=== PATIENT | female | born 1985 | race African-American/Black ===

== ENCOUNTER 2024-01-04 22:37 | Observation (INO) | payer BC ==
[2024-01-04] MEDS ORDERED: NIFEdipine 10 MG Cap ONE ×2 (23:10→23:43)
[2024-01-04] MEDS: NIFEdipine 10 MG Cap PO ONE ×2 (23:15→23:46)
[2024-01-05] MEDS: Acetaminophen 500 MG Tab PO ONE ×2 (02:41→08:15)
[2024-01-05] MEDS: Calcium Carbonate 500 MG Tab.Chew PO ONE (02:43)
[2024-01-05 07:53] LABS: HEMATOCRIT 35.7 % (37.0-47.0); HEMOGLOBIN 12.1 g/dL (12.0-16.0); MEAN CORPUSCULAR HEMOGLOBIN 27.8 pg (28.0-32.0); MEAN CORPUSCULAR HGB CONC 33.9 g/dL (32.0-36.0); MEAN CORPUSCULAR VOLUME 81.9 fL (83.0-99.0); MEAN PLATELET VOLUME 11.2 fL (9.4-12.3); PLATELET COUNT,PLT 175 K/uL (150-400); RED BLOOD CELL COUNT 4.36 M/uL (4.10-5.30); WHITE BLOOD CELL COUNT,WBC 6.28 K/uL (3.9-11.3)
[2024-01-05 08:20] LABS: A/G RATIO 0.6 (0.9-1.6); ALBUMIN 2.6 g/dL (3.4-5.0); BILIRUBIN TOTAL 0.4 mg/dL (0.2-1.0); CALCIUM 8.6 mg/dL (8.5-10.1); CARBON DIOXIDE,CO2 25.6 mmol/L (21.0-32.0); CREATININE 0.7 mg/dL (0.6-1.0); EST CRCL DRUG DOSING (CG) 112.08 mL/min; POTASSIUM,K 3.9 mmol/L (3.5-5.1); PROTEIN TOTAL,TP 6.9 g/dL (6.4-8.2); URIC ACID 4.7 mg/dL (2.6-7.2)
[2024-01-05] MEDS ORDERED: Sodium Chloride 0.9% 10 ML Syringe FLUSH PRN (08:39)
[2024-01-05] MEDS ORDERED: Sodium Chloride 0.9% 2.5 ML Syringe FLUSH PRN (08:39)
[2024-01-05] MEDS ORDERED: Calcium Gluconate 10% 1 GM/10 ML SDV IV PRN (08:39)
[2024-01-05] MEDS ORDERED: Sodium Chloride 0.9% 20 ML SDV IV PRN (08:39)
[2024-01-05] MEDS ORDERED: Magnesium Sulfate/Water 2 GM in Premix Bag 1 BAG IV ONE (09:00)
[2024-01-05] MEDS ORDERED: Nitrofurantoin Monohydrate/Macrocrystalline 100 MG Cap PO SCH (09:00)
[2024-01-05] MEDS: Betamethasone Acetate/Betamethasone Sod Phosphate 6 MG/1 ML MDV IM SCH (09:32)
[2024-01-05] MEDS: Acetaminophen 1,000 MG in Premix Bag 1 BAG IV ONE (09:39)
[2024-01-05] MEDS: Magnesium Sulfate/Water 2 GM in Premix Bag 1 BAG IV ONE (09:42)
[2024-01-05] MEDS: Magnesium Sulfate/Water 4 GM in Premix Bag 1 BAG IV ONE (09:59)
[2024-01-05] MEDS ORDERED: Lactated Ringers 1,000 ML IV SCH (10:15)
[2024-01-05] MEDS: Magnesium Sulfate/Water 20 GM/500 ML BAG IV SCH (10:26)
[2024-01-05 10:32] LABS: APPEARANCE,URINE CLOUDY; BILIRUBIN,URINE NEGATIVE (NEGATIVE); COLOR,URINE YELLOW; GLUCOSE,URINE NEGATIVE (NEGATIVE); KETONES,URINE NEGATIVE (NEGATIVE); LEUKOCYTE ESTERASE,URINE TRACE (NEGATIVE); NITRITE,URINE NEGATIVE (NEGATIVE); OCCULT BLOOD,URINE SMALL (NEGATIVE); PROTEIN,URINE TRACE mg/dL (NEGATIVE); UROBILINOGEN,URINE 0.2 EU/dL (<2.0)
[2024-01-05 10:41] LABS: BACTERIA,URINE 3+ (NEGATIVE); EPITHELIAL CELLS,URINE FEW (NONE-FEW); MUCUS,URINE LIGHT (NONE-MOD); RBC,URINE NONE SEEN (0-2/HPF)
[2024-01-05] MEDS: NIFEdipine 30 MG Tab.ER PO SCH (12:05)
[2024-01-05] MEDS: Labetalol 100 MG/20 ML MDV IVPUSH ONE (12:17)
[2024-01-05] MEDS ORDERED: Labetalol 100 MG/20 ML MDV IVPUSH ONE (12:25)
[2024-01-06 15:07] LABS: URINE PROTEIN 44 mg/dL (1-14)
== END 2024-01-05 13:45 | disposition home or self-care (01) ==
LOC: MW.OBCHECK 22:37 → MW.OB 22:37 → MW.OBCHECK 01-05 00:36
PROVIDERS: ADMIT Obstetrics & Gynecology; ATTEND Obstetrics & Gynecology
DX: O13.2 Gestational [pregnancy-induced] hypertension without significant proteinuria, second trimester (principal); O09.522 Supervision of elderly multigravida, second trimester; O34.32 Maternal care for cervical incompetence, second trimester; O44.42 Low lying placenta NOS or without hemorrhage, second trimester; O99.212 Obesity complicating pregnancy, second trimester; O34.219 Maternal care for unspecified type scar from previous cesarean delivery; O30.042 Twin pregnancy, dichorionic/diamniotic, second trimester; R74.8 Abnormal levels of other serum enzymes; Z3A.22 22 weeks gestation of pregnancy
CPT/HCPCS: 36415; 76810; 76810-26; 80053; 81001; 84550; 85027; 86850; 86900; 86901; 96365; 96366; 96367; 96372; 96375; 96376; A9270-GY; G0378; J0131; J0702; J1921; J3475

== ENCOUNTER 2024-07-24 06:58 | Day surgery (SDC) | payer BC ==
[~2024-07-24 06:58] MED LIST: Scopalamine 1mg/3day Transdermal Patch ONE
[2024-07-24] MEDS ORDERED: Sugammadex Sodium 200 MG/2 ML VIAL IV ONE (06:59)
[2024-07-24] MEDS ORDERED: Ferric Subsulfate Topical Soln 8 GM (8 ML) Bottle ONE (07:14)
[2024-07-24] MEDS ORDERED: Lidocaine 1% with EPINEPHrine 1:100,000 10 ML MDV ONE (07:14)
[2024-07-24] MEDS ORDERED: Iodine/Potassium Iodide 5% Solution 14 ML Bottle ONE (07:15)
[2024-07-24] MEDS: Scopalamine 1mg/3day Transdermal Patch TOP ONE (07:20)
[2024-07-24 07:26] LABS: HEMATOCRIT 36.2 % (37.0-47.0); HEMOGLOBIN 11.7 g/dL (12.0-16.0); MEAN CORPUSCULAR HEMOGLOBIN 26.4 pg (28.0-32.0); MEAN CORPUSCULAR HGB CONC 32.3 g/dL (32.0-36.0); MEAN CORPUSCULAR VOLUME 81.7 fL (83.0-99.0); PLATELET COUNT,PLT 271 K/uL (150-400); RED BLOOD CELL COUNT 4.43 M/uL (4.10-5.30); WHITE BLOOD CELL COUNT,WBC 3.85 K/uL (3.9-11.3)
[2024-07-24] MEDS: Lactated Ringers 1,000 ML IV SCH (07:30)
[2024-07-24] MEDS ORDERED: HYDROmorphone 1 MG/ML Syringe IVPUSH PRN (07:38)
[2024-07-24] MEDS ORDERED: Ondansetron 4 MG/2 ML SDV IVPUSH PRN (07:38)
[2024-07-24] MEDS ORDERED: Albuterol 0.083% 2.5 MG/3 ML Neb Soln NEB PRN (07:38)
[2024-07-24] MEDS ORDERED: Morphine 2 MG/ML SYRINGE IVPUSH PRN (07:38)
[2024-07-24] MEDS ORDERED: Phenylephrine HCl In 0.9% NaCl 1 MG/10 ML Syringe IVPUSH PRN (07:38)
[2024-07-24] MEDS ORDERED: Metoclopramide 10 MG/2 ML SDV IVPUSH PRN (07:38)
[2024-07-24] MEDS ORDERED: Naloxone 0.4 MG/ML SDV IVPUSH PRN (07:38)
[2024-07-24] MEDS ORDERED: fentaNYL 50 MCG/ML SDV IVPUSH PRN (07:38)
[2024-07-24] MEDS ORDERED: Propofol 200 MG/20 ML SDV ONE (08:18)
[2024-07-24] MEDS ORDERED: Rocuronium Bromide 50 MG/5 ML Syringe ONE (08:21)
[2024-07-24] MEDS ORDERED: fentaNYL 100 MCG/2 ML SDV ONE (08:21)
[2024-07-24] MEDS ORDERED: Ondansetron 4 MG/2 ML SDV ONE (09:58)
[2024-07-24] MEDS ORDERED: Dexamethasone 4 MG/ML 5 ML MDV ONE (09:58)
[2024-07-24] MEDS ORDERED: Ketorolac 30 MG/ML SDV ONE (09:58)
== END 2024-07-24 11:12 | disposition home or self-care (01) ==
LOC: MW.SDS 06:58
PROVIDERS: ATTEND Obstetrics & Gynecology
DX: D06.9 Carcinoma in situ of cervix, unspecified (principal); I10 Essential (primary) hypertension
CPT/HCPCS: 36415; 57460; 84703; 85027; A9270; C1729; J0131; J1100; J1885; J2405; J2704; J3010; J7120; 00940; J3490